=== PATIENT | female | born 1970 | race African-American/Black ===

== ENCOUNTER 2016-10-08 09:32 | Emergency (ER) | payer BC, OTHER ==
[~2016-10-08] VITALS: Ht 167.6 cm; Wt 52.2 kg
[~2016-10-08 09:32] MED LIST: CHLORTHALIDONE25 MG PO; CIPRO500 MG PO; FLAGYL500 MG PO; IBUPROFEN 600600 M1 PO; LISINOPRIL20 MG PO; NEURONTIN600 MG PO; NORCO 5-325 TA1 EACH PO; NORVASC2.5 MG PO; NORVASC5 MG PO; OMEPRAZOLE40 MG PO; PREDNISONE 20 M20 MG PO; VALIUM2 MG PO; ZOFRAN ODT4 MG PO
[2016-10-08] MEDS ORDERED: TENORMIN25 M1 PO (10:35)
[2016-10-08] MEDS ORDERED: ULTRAM 50MG TAB50 MG PO (10:54)
[2016-10-08] MEDS ORDERED: NAPROSYN500 MG PO (10:54)
[2016-10-08] MEDS ORDERED: MEDROLDOSEPACK PO (10:54)
[2016-10-08 11:38] VITALS: BP 159/84
== END 2016-10-08 11:41 | disposition home or self-care (01) ==
LOC: ER 09:32
DX: S46.912A Strain of unspecified muscle, fascia and tendon at shoulder and upper arm level, left arm, initial encounter (principal); I10 Essential (primary) hypertension; F10.99 Alcohol use, unspecified with unspecified alcohol-induced disorder; F12.10 Cannabis abuse, uncomplicated; Z90.710 Acquired absence of both cervix and uterus; Z90.49 Acquired absence of other specified parts of digestive tract; Z98.890 Other specified postprocedural states; X58.XXXA Exposure to other specified factors, initial encounter; Y93.89 Activity, other specified; Y92.89 Other specified places as the place of occurrence of the external cause; Y99.8 Other external cause status

== ENCOUNTER 2017-04-29 09:40 | Emergency (ER) | payer BC, OTHER ==
[~2017-04-29] VITALS: Ht 167.6 cm; Wt 53.5 kg
[~2017-04-29 09:40] MED LIST changes: +MEDROLDOSEPACK PO; +NAPROSYN500 MG PO; +TENORMIN25 M1 PO; +ULTRAM 50MG TAB50 MG PO
[2017-04-29] MEDS ORDERED: NAPROSYN500 MG PO (10:29)
[2017-04-29] MEDS ORDERED: ULTRAM 50MG TAB50 MG PO (10:29)
== END 2017-04-29 10:55 | disposition home or self-care (01) ==
LOC: ER 09:40
DX: S30.0XXA Contusion of lower back and pelvis, initial encounter (principal); I10 Essential (primary) hypertension; Z90.49 Acquired absence of other specified parts of digestive tract; Z90.710 Acquired absence of both cervix and uterus; Z87.891 Personal history of nicotine dependence; W00.0XXA Fall on same level due to ice and snow, initial encounter; Y93.89 Activity, other specified; Y92.89 Other specified places as the place of occurrence of the external cause; Y99.8 Other external cause status

== ENCOUNTER 2018-09-11 11:31 | Emergency (ER) | payer BC, OTHER ==
[2018-09-11 11:31] VITALS: BP 151/92
[2018-09-12] MEDS ORDERED: NORVASC5 MG PO (08:27)
== END 2018-09-11 15:41 | disposition left against medical advice (07) ==
LOC: ER 11:31
DX: Z53.21 Procedure and treatment not carried out due to patient leaving prior to being seen by health care provider (principal)

== ENCOUNTER 2018-09-12 08:24 | Emergency (ER) | payer BC, OTHER ==
[~2018-09-12] VITALS: Ht 167.6 cm; Wt 63.5 kg
[2018-09-12 08:24] VITALS: BP 138/89
[2018-09-12] MEDS ORDERED: NORVASC5 MG PO (08:27)
== END 2018-09-12 10:00 | disposition home or self-care (01) ==
LOC: ER 08:24
DX: G57.01 Lesion of sciatic nerve, right lower limb (principal); I10 Essential (primary) hypertension; Z87.891 Personal history of nicotine dependence; Z90.49 Acquired absence of other specified parts of digestive tract; Z90.710 Acquired absence of both cervix and uterus

== ENCOUNTER 2020-07-03 17:38 | Emergency (ER) | payer BC, OTHER ==
[~2020-07-03] VITALS: Ht 167.6 cm; Wt 59.9 kg
[2020-07-03 17:53] LABS: URINE BILIRUBIN NEGATIVE (Negative); URINE BLOOD NEGATIVE (Negative); URINE CLARITY CLEAR; URINE COLOR YELLOW; URINE GLUCOSE-RANDOM* NEGATIVE (Negative); URINE KETONES NEGATIVE (Negative); URINE LEUKOCYTES-REFLEX NEGATIVE (Negative); URINE NITRITE-REFLEX NEGATIVE (Negative); URINE PROTEIN (DIPSTICK) TRACE (Negative); URINE SPECIFIC GRAVITY 1.025 (1.005-1.035)
[2020-07-03 18:22] LABS: BASOPHILS 0.9 % (0.0-2.0); EOSINOPHILS 2.3 % (0.0-3.0); HEMATOCRIT 41.1 % (37.0-47.0); HEMOGLOBIN 13.9 gm/dL (12.0-15.0); LYMPHOCYTES 32.7 % (24.0-44.0); MCH 28.2 pg (26.0-34.0); MCHC 33.9 g/dL (28.0-37.0); MCV 83.4 fL (80.0-100.0); MONOCYTES 12.5 % (1.0-8.0); PLATELET COUNT 280 thou/uL (150-400); POLYS 51.6 % (36.0-66.0); RBC 4.92 mil/uL (4.20-5.00); WBC 3.9 thou/uL (4.0-11.0)
[2020-07-03 18:29] LABS: CALCIUM 9.3 mg/dL (8.5-10.1); CREATININE 0.8 mg/dL (0.6-1.0)
[2020-07-03 18:35] LABS: ALBUMIN 4.3 g/dL (3.4-5.0); TOTAL BILIRUBIN 0.6 mg/dL (0.2-1.0); TOTAL PROTEIN 7.5 g/dL (6.4-8.2)
[2020-07-03] MEDS ORDERED: POTASSIUM20 PO (20:04)
[2020-07-03] MEDS ORDERED: CYCLOBENZAPRINE5 MG PO (20:04)
[2020-07-03] MEDS ORDERED: NORCO5 PO (20:04)
[2020-07-03 20:32] VITALS: BP 124/74
== END 2020-07-03 20:34 | disposition home or self-care (01) ==
LOC: ER 17:38
PROVIDERS: Physician Assistant
DX: K59.00 Constipation, unspecified (principal); M51.26 Other intervertebral disc displacement, lumbar region; R10.31 Right lower quadrant pain; I10 Essential (primary) hypertension; Z87.891 Personal history of nicotine dependence; Z79.899 Other long term (current) drug therapy; Z90.49 Acquired absence of other specified parts of digestive tract; Z98.890 Other specified postprocedural states

== ENCOUNTER 2021-03-31 19:21 | Emergency (ER) | payer BC, OTHER ==
[~2021-03-31] VITALS: Ht 167.6 cm; Wt 67.1 kg
[~2021-03-31 19:21] MED LIST changes: +CYCLOBENZAPRINE5 MG PO; +NORCO5 PO; +POTASSIUM20 PO
[2021-03-31 19:59] LABS: ABSOLUTE NEUTROPHILS 1.9 thou/uL (1.4-8.2); BASOPHILS 1.4 % (0.0-2.0); EOSINOPHILS 2.9 % (0.0-3.0); HEMATOCRIT 43.8 % (37.0-47.0); HEMOGLOBIN 14.4 gm/dL (12.0-15.0); LYMPHOCYTES 40.2 % (24.0-44.0); MCH 27.2 pg (26.0-34.0); MCHC 32.9 g/dL (28.0-37.0); MCV 82.7 fL (80.0-100.0); MONOCYTES 12.8 % (1.0-8.0); PLATELET COUNT 315 thou/uL (150-400); POLYS 42.7 % (36.0-66.0); RBC 5.29 mil/uL (4.20-5.00); RDW 13.7 % (10.5-14.5); WBC 4.5 thou/uL (4.0-11.0)
[2021-03-31 20:24] LABS: CALCIUM 10.2 mg/dL (8.5-10.1); CREATININE 0.8 mg/dL (0.6-1.0)
[2021-03-31 20:30] LABS: ALBUMIN 4.4 g/dL (3.4-5.0); DIRECT BILIRUBIN 0.2 mg/dL (<0.1-0.2); TOTAL BILIRUBIN 0.4 mg/dL (0.2-1.0); TOTAL PROTEIN 7.8 g/dL (6.4-8.2)
[2021-03-31] MEDS ORDERED: HYOSCYAMIN125 MCG/5 PO (22:10)
[2021-03-31] MEDS ORDERED: ZOFRAN ODT4 MG PO (22:10)
[2021-03-31] MEDS ORDERED: CARAFATE 1 GM TA1 G1 PO (22:10)
[2021-03-31 23:43] VITALS: BP 138/78
--- NOTE | 2021-04-01 10:03 | EKG ---
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: anjum : 1970 Requested By: Chavez Cassidy Order Number: [id number] MD: Rigoberto Caldera Measurements Intervals [place] Rate: 98 P: 69 [place]: 156 QRS: -32 QRSD: 96 T: 38 QT: 384 QTc: 491 Interpretive Statements Sinus rhythm Biatrial enlargement Left axis deviation Anteroseptal infarct, age indeterminate Compared to ECG 11/21/2015 08:11:01 Sinus tachycardia no longer present Electronically Signed On 04-01-2021 7:51:34 [employer]IN[employer] TECHNICIAN by Rigoberto Caldera [email or web address] <ELECTRONICALLY SIGNED> By: Rigoberto Caldera MD, [facility] 04/01/21 [id number] [id number] 38 Rigoberto Caldera MD, FACC /EPI
== END 2021-03-31 23:44 | disposition home or self-care (01) ==
LOC: ER 19:21
PROVIDERS: Emergency Medicine
DX: K44.9 Diaphragmatic hernia without obstruction or gangrene (principal); R07.89 Other chest pain; I10 Essential (primary) hypertension; R10.10 Upper abdominal pain, unspecified; Z90.49 Acquired absence of other specified parts of digestive tract; Z90.710 Acquired absence of both cervix and uterus; Z79.899 Other long term (current) drug therapy; Z87.891 Personal history of nicotine dependence